=== PATIENT | male | born 1985 | race Caucasian/White ===

== ENCOUNTER 2018-03-29 10:22 | Emergency (ER) | payer MEDICAID ==
[~2018-03-29] VITALS: Ht 172.7 cm; Wt 87.1 kg
[2018-03-29 10:29] VITALS: BP 153/96; Ht 172.7 cm; Wt 87.1 kg
== END 2018-03-29 10:59 | disposition home or self-care (01) ==
LOC: ED 10:22 → EDSEX 10:22 → ED 10:59
DX: H01.004 Unspecified blepharitis left upper eyelid (principal); Z90.89 Acquired absence of other organs

== ENCOUNTER 2018-04-19 08:59 | Emergency (ER) | payer MEDICAID ==
[~2018-04-19] VITALS: Ht 175.3 cm; Wt 88.0 kg
[2018-04-19 09:02] VITALS: Ht 175.3 cm; Wt 88.0 kg
[2018-04-19 09:38] VITALS: BP 139/88
== END 2018-04-19 09:30 | disposition home or self-care (01) ==
LOC: ED 08:59
DX: J02.9 Acute pharyngitis, unspecified (principal); Z90.89 Acquired absence of other organs